=== PATIENT | male | born 1995 | race Asian ===

== ENCOUNTER 2017-05-26 10:25 | Emergency (ER) | payer OTHER ==
[~2017-05-26] VITALS: Ht 165.1 cm; Wt 63.5 kg
[2017-05-26 11:15] VITALS: BP 135/88
[2017-05-26 12:11] VITALS: BP 119/80
--- NOTE | 2017-05-26 12:20 | Diagnostic Imaging Report ---
Indication: SOB Technique: 3 views of the left shoulder Comparison: none Findings: No acute fractures. No dislocations. Joint spaces are preserved Impression:Negative
--- NOTE | 2017-05-26 12:20 | Diagnostic Imaging Report ---
Indication: SOB Technique: 3 views of the cervical spine Comparison: none Findings: Bony alignment is normal. No prevertebral soft tissue swelling. Vertebral body heights are preserved. Disc spaces are preserved. No acute fractures. No dislocations. Impression: Negative
--- NOTE | 2017-05-26 12:21 | Diagnostic Imaging Report ---
Indication: SOB Technique: One view of the chest Comparison: none Findings: Lungs and pleural spaces are clear. Heart size is normal. Impression: No acute process
[2017-05-26] MEDS ORDERED: CYCLOBENZAPRINE10 MG ORAL (12:44)
[2017-05-26] MEDS ORDERED: IBUPROFEN600 MG ORAL (12:44)
[2017-05-26 12:45] VITALS: BP 119/80
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
== END 2017-05-26 12:45 | disposition home or self-care (01) ==
LOC: EDBD 10:25 → EMR 12:10
DX: S16.1XXA Strain of muscle, fascia and tendon at neck level, initial encounter (principal); V43.92XA Unspecified car occupant injured in collision with other type car in traffic accident, initial encounter; Y93.9 Activity, unspecified; Y92.410 Unspecified street and highway as the place of occurrence of the external cause
CPT/HCPCS: 71010; 72040; 99284